=== PATIENT | male | born 1990 ===

== ENCOUNTER 2017-02-06 03:47 | Emergency (ER) | payer OTHER ==
[2017-02-06 03:57] VITALS: RESP 16
--- NOTE | 2017-02-06 04:11 | ED PDOC ---
HPI: Psych/Substance Abuse Time Seen by Provider: 02/06/17 03:58 Chief Complaint (Nursing): Alcohol Ingestion Chief Complaint (Provider): Alcohol Ingestion ED Caveat: Intoxicated History Per: EMS History/Exam Limitations: intoxication Onset/Duration Of Symptoms: Mins (prior to arrival) Current Symptoms Are (Timing): Still Present Additional Complaint(s): Christiano Allred is a 26 year old male who presents to the emergency department via [facility] for an evaluation of intoxication prior to arrival. Unable to obtain medical history due to patient's current state of intoxication. PMD: none provided Past Medical History Reviewed: Nursing Documentation, Vital Signs, Unable To Obtain (intoxicated) Vital Signs: Last Vital Signs Temp 98.7 F 02/06/17 03:54 Pulse 117 H 02/06/17 03:54 Resp 16 02/06/17 03:54 BP 135/93 H 02/06/17 03:54 Pulse Ox 100 02/06/17 03:54 - Family History Family History: States: Unknown Family Hx - Allergies Allergies/Adverse Reactions: Allergies Allergy/AdvReac Type Severity Reaction Status Date / Time No Known Allergies Allergy Verified 02/06/17 04:02 Review of Systems Review Of Systems: ROS cannot be obtained secondary to pt's inabilty to answer questions. (intoxicated) Physical Exam - Reviewed Nursing Documentation Reviewed: Yes Vital Signs Reviewed: Yes - Physical Exam Appears: Positive for: Well, Non-toxic, No Acute Distress Head Exam: Positive for: ATRAUMATIC, NORMAL INSPECTION, NORMOCEPHALIC Skin: Positive for: Normal Color Eye Exam: Positive for: Normal appearance ENT: Positive for: Normal ENT Inspection Neck: Positive for: Normal Cardiovascular/Chest: Positive for: Regular Rate, Rhythm, Chest Non Tender Respiratory: Positive for: Normal Breath Sounds, Accessory Muscle Use. Negative for: Decreased Breath Sounds, Respiratory Distress Gastrointestinal/Abdominal: Positive for: Normal Exam, Bowel Sounds, Soft. Negative for: Tenderness Extremity: Positive for: Normal ROM. Negative for: Tenderness, Pedal Edema, Deformity Neurologic/Psych: Positive for: Mood/Affect (obtunded but arrousable; flat; intoxicated), Other (slurred speech). Negative for: Oriented - Laboratory Results Result Diagrams: 02/06/17 04:08 02/06/17 04:08 - ECG O2 Sat by Pulse Oximetry: 100 (RA) Pulse Ox Interpretation: Normal Medical Decision Making Medical Decision Making: Initial Impression: Alcohol intoxication Initial Plan: * Alcohol serum * CMP * Drug screen, urine * CBC * Accucheck Time: 0700 --Patient signed out to Dr. Simba Fink III. Pending clinical sobriety. Scribe Attestation: Documented by Lissette Ames, acting as a scribe for Greyson Corado MD. Provider Scribe Attestation: All medical record entries made by the Scribe were at my direction and personally dictated by me. I have reviewed the chart and agree that the record accurately reflects my personal performance of the history, physical exam, medical decision making, and the department course for this patient. I have also personally directed, reviewed, and agree with the discharge instructions and disposition. Disposition - Clinical Impression Clinical Impression: Alcohol abuse - Patient ED Disposition Is Patient to be Admitted: Transfer of Care - Disposition Referrals: FAMILY PROVIDER,NO [Primary Care Provider] - Disposition: Transfer of Care Disposition Time: 07:00 Condition: STABLE Print Language: FAROESE Patient Signed Over To: Simba Fink III
[2017-02-06 05:03] LABS: BASO % 0.6 % (0.0-2.0); EOS # 0.2 K/uL (0.0-0.7); EOS % 3.7 % (0.0-4.0); HEMATOCRIT 42.5 % (35.0-51.0); LYMPH # 2.3 K/uL (1.0-4.3); MEAN CELL VOLUME 90.8 fl (80.0-94.0); MEAN CORPUSCULAR HEMOGLOBIN 30.3 pg (27.0-31.0); MEAN CORPUSCULAR HGB CONC 33.3 g/dL (33.0-37.0); MONO # 0.4 K/uL (0.0-0.8); MONO % 7.4 % (0.0-10.0); NEUT # 2.9 K/uL (1.8-7.0); NEUT % 49.3 % (50.0-75.0); RED CELL DISTRIBUTION WIDTH 12.4 % (11.5-14.5); WHITE BLOOD COUNT 5.9 K/uL (4.8-10.8)
[2017-02-06 06:17] LABS: ALB/GLOB RATIO 1.2 (1.0-2.1); ALCOHOL SERUM 268 mg/dl (0-10); ALKALINE PHOSPHATASE 73 U/L (38-126); ALT/SGPT 28 U/L (21-72); AST/SGOT 56 U/L (17-59); BILIRUBIN,TOTAL 0.2 mg/dl (0.2-1.3); BLOOD UREA NITROGEN 16 mg/dl (9-20); CALCIUM 8.5 mg/dL (8.4-10.2); CARBON DIOXIDE 19 mmol/L (22-30); CHLORIDE 114 mmol/L (98-107); GFR AFRICAN-AMERICAN > 60; GLUCOSE,RANDOM 109 mg/dL (75-110); POTASSIUM 4.2 MMOL/L (3.6-5.0); SODIUM 151 mmol/l (132-148); TOTAL PROTEIN 8.9 G/DL (6.3-8.2)
--- NOTE | 2017-02-06 07:11 | ED PDOC ---
- Laboratory Results Result Diagrams: 02/06/17 04:08 02/06/17 04:08 - ECG O2 Sat by Pulse Oximetry: 100 (RA) Medical Decision Making Medical Decision Makin:00 Patient signed out to provider by Dr. Corado pending clinical sobriety. 930am awake, sitting in chair but remains w slurred speech 1030am awake, ambulating to bathroom w stable gait. Speech improved, wants to go home. DC from ED/ Scribe Attestation: Documented by Neha Choudhury, acting as a scribe for Simba Fink III, DO. Provider Scribe Attestation: All medical record entries made by the Scribe were at my direction and personally dictated by me. I have reviewed the chart and agree that the record accurately reflects my personal performance of the history, physical exam, medical decision making, and the department course for this patient. I have also personally directed, reviewed, and agree with the discharge instructions and disposition. Disposition - Clinical Impression Clinical Impression: Alcohol abuse - POA Present On Arrival: None - Disposition Referrals: FAMILY PROVIDER,NO [Primary Care Provider] - Disposition: Routine/Home Disposition Time: 10:50 Condition: STABLE Print Language: DIVEHI
[2017-02-06 11:20] VITALS: BP 109/61; PULSE 78; TEMP 98
[2017-02-06 23:34] VITALS: O2SAT 100
== END 2017-02-06 11:20 | disposition home or self-care (01) ==
LOC: EDBD 03:47 → H.ER 03:47
DX: F10.129 Alcohol abuse with intoxication, unspecified (principal)